=== PATIENT | male | born 1955 ===

== ENCOUNTER → 2017-07-05 | Emergency (ER) | payer BC ==
[~2017-07-05] VITALS: Ht 177.8 cm; Wt 106.1 kg
[~2017-07-05] MED LIST: CELECOXIB100 MG PO; CLONAZEPAM1 MG; COZAAR100 MG; PAXIL20 MG
== END | disposition home or self-care (01) ==
LOC: ER 11:16
DX: M25.562 Pain in left knee (principal); M79.662 Pain in left lower leg